=== PATIENT | female | born 2005 ===

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

== ENCOUNTER 2025-02-05 14:36 | Outpatient (AMB) | payer OTHER, SELFPAY ==
--- NOTE | 2025-02-05 14:45 | MHC.OFFVIS ---
Vital Signs 02/05/25 14:47 Height 5 ft 2 in Weight 260 lb BMI 47.5 BP 110/80 Intake Visit Reasons: medication follow up Chief Building Inspector Required: No Information Interpreted: non-clinical & clinical Accompanied by: Self / Same As Patient Allergies nickel (NICKEL) Allergy (Unknown, Verified 02/05/25 14:47) UNKNOWN Is last menstrual period known: Yes Last menstrual period: 01/05/25 HPI Comments Details: Presenting for follow-up the patient has been not clear about how to take the Prometrium has been taking Prometrium day 1 of every month and then decided to discontinue it few months ago. [facility] Medical History Low serum 17-hydroxyprogesterone Oligomenorrhea Migraines Surgical History No pertinent past surgical history Family History Mother Lupus Father No problems noted. Maternal Grandmother Hx of substance abuse Chronic mental illness Cancer Sister Autism Social History Household Members Other:: lives with mother and brother. sees father biweekly. Both parents involved: Yes Housing: Apartment Are you a primary lpn care manager to a significant other at home: No Do you presently have visiting nurse or other home services: No 75 years or older and lives alone: No Alcohol intake: never Patient Tobacco Use Status: Never used Tobacco Cognitive needs: No Hearing needs: No Vision needs: No Female Reproductive History Menstrual Age of Menarche: 11 Duration of menses: >10 days Date of last menstrual period: 01/05/25 Review of Systems Const All systems reviewed & are unremarkable except as noted in HPI and below Reports as per HPI and Reports no additional complaints GI Reports no additional complaints Reports no additional complaints Physical Exam Vital Signs: Last Vital Signs BP 110/80 02/05/25 14:47 BMI result Body Mass Index 47.5 Assessment & Plan Assessment & Plan (1) Abnormal uterine bleeding: Code(s): N93.9 - Abnormal uterine and vaginal bleeding, unspecified Category: Medical Plan: Explained to the patient how to take Prometrium 200 mg p.o. day 15-24 cyclicly. Prescription refilled, instructions given the patient to schedule a three-month follow-up appointment. All questions answered, the patient verbalized understanding Medications: Refilled progesterone micronized (Prometrium) Take the pill 1 tablet a day cyclically every month from day 15-24 day 1 being the 1st day of next menstrual cycle 200 mg PO BEDTIME 30 caps 3RF 10 days Coding Level of Care Code Est Pt Level 3 (02340) Diagnoses Abnormal uterine bleeding N93.9
[2025-02-05 14:47] VITALS: BP 110/80; BMI 47.5
== END 2025-02-05 15:16 | disposition home or self-care (01) ==
LOC: HO.HWS 14:36
PROVIDERS: PCP Pediatrics; Visit Provider Obstetrics & Gynecology
DX: N93.9 Abnormal uterine and vaginal bleeding, unspecified (principal)
CPT/HCPCS: 99213

== ENCOUNTER → 2025-02-05 14:36 | Outpatient (BNVA) | payer OTHER, SELFPAY | PROVIDERS: PCP Pediatrics; Visit Provider Obstetrics & Gynecology | DX: N93.9 Abnormal uterine and vaginal bleeding, unspecified (principal) | CPT/HCPCS: 99212 ==

== ENCOUNTER 2025-05-15 13:39 | Outpatient (AMB) | payer OTHER, SELFPAY ==
--- NOTE | 2025-05-15 13:40 | A.OFFVIS_ITS ---
Intake Visit Reasons: medication follow up Allergies nickel (NICKEL) Allergy (Unknown, Verified 02/05/25 14:47) UNKNOWN HPI Comments Details: The patient took Prometrium for 10 days and did not have a menstrual cycle. PFSH Medical History Low serum 17-hydroxyprogesterone Oligomenorrhea Migraines Surgical History No pertinent past surgical history Family History Mother Lupus Father No problems noted. Maternal Grandmother Hx of substance abuse Chronic mental illness Cancer Sister Autism Social History Household Members Other:: lives with mother and brother. sees father biweekly. Both parents involved: Yes Housing: Apartment Are you a primary residential caregiver to a significant other at home: No Do you presently have visiting nurse or other home services: No 75 years or older and lives alone: No Alcohol intake: never Patient Tobacco Use Status: Never used Tobacco Cognitive needs: No Hearing needs: No Vision needs: No Female Reproductive History Menstrual Age of Menarche: 11 Review of Systems Const All systems reviewed & are unremarkable except as noted in HPI and below Reports as per HPI and Reports no additional complaints GI Reports no additional complaints Reports no additional complaints Telehealth Telehealth [facility]health [facility] Location of provider rendering services: practice address Location of patient: address on file Patient Identification confirmed using: Name, : Yes Telehealth method: video Patient verbally consented to treatment: Yes Patient verbally consented to billing insurance company: Yes Patient informed of any privacy concerns related to visit: Yes Minutes spent on Phone/Video with Pt.: 6 Assessment & Plan Assessment & Plan (1) Amenorrhea: Code(s): N91.2 - Amenorrhea, unspecified Category: Medical Plan: Will order FSH/LH and hCG. Instructions given to patient to schedule a follow- up appointment within 2 weeks. All questions answered, the patient verbalized understanding I spent a total of 20 minutes reviewing the chart, talking to the patient via video and documenting in the medical record. Orders: Orders Lutenizing Hormone Today N91.2 - Amenorrhea, unspecified Follicle Stimulating Hormone Today N91.2 - Amenorrhea, unspecified HCG Quantitative Today N91.2 - Amenorrhea, unspecified Coding Level of Care Code Tele Est Pt Level 3 (38503) Diagnoses Amenorrhea N91.2
== END 2025-05-15 14:14 | disposition home or self-care (01) ==
LOC: HO.HWS 13:39
PROVIDERS: PCP Pediatrics; Visit Provider Obstetrics & Gynecology
DX: N91.2 Amenorrhea, unspecified (principal)
CPT/HCPCS: 99213